=== PATIENT | female | born 2000 | race Caucasian/White ===

== ENCOUNTER 2024-09-11 09:40 | Outpatient (AMB) | payer MEDICAID, SELFPAY ==
--- NOTE | 2024-09-11 10:12 | MHC.OFFVIS ---
Vital Signs 09/11/24 10:13 Height 5 ft 7 in Weight 211 lb BMI 33.0 Pulse 71 Pulse Source Pulse Oximeter Pulse Oximetry (%) 98 Oxygen Delivery Method Room Air Intake Visit Reasons: MAT Allergies No Known Allergies Allergy (Verified 09/11/24 10:13) HPI HPI MAT: Details: She is new to me but has been in program previously last year for OUD,pills. She is a walk-in. She has OUD and was doing well until June 2024 when she started taking pills she buys from the street for no reason. Now she uses 12-13 of the pressed 30 mg Oxy pills a day and is cashing check from work immediately to buy them. Sometimes the pills make her feel high and sometimes not. She told her boyfriend she is using again. She has been using Suboxone last year and then Sublocade but had withdrawal about third week after injection and was using [address] pills while taking the Sublocade injection. Reason for visit:OUD Currently using? yes ,but stopped two days ago 12-13 a day. 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 Behavioral Health no provider or diagnosis no SI or HI no other addictive behavior no psych hospitalization medical conditions denies legal history denies [facility] Medical History Opioid use disorder Female Reproductive History Menstrual Other: no control , has not become told to see Brand Protection Manager Review of Systems Const All systems reviewed & are unremarkable except as noted in HPI and below Physical Exam Vital Signs: Last Vital Signs Pulse 71 09/11/24 10:13 Pulse Ox 98 09/11/24 10:13 Oxygen Delivery Method Room Air 09/11/24 10:13 BMI result Body Mass Index 33.0 Const General: cooperative Orientation/consciousness: patient oriented x3 HEENT Head: Yes normal to inspection Mouth: Normal oral and palatal mucosa present Eyes General: appearance normal, both eyes and all related structures Pupils: Equal, round and reactive pupils present Resp Effort & Inspection: normal respiratory effort Cardio Rate: regular rate Rhythm: regular rhythm GI Palpation (GI): Soft to palpation and nontender General: Yes no CVA tenderness Back/Spine/Pelvis Back: no CVA tenderness Skin General skin exam: no rashes or lesions noted Neuro General: patient oriented x3 Cranial nerves: Yes CN's II-XII intact bilaterally and Yes Equal, round and reactive pupils present Extrem General: Yes normal to inspection Psych Appearance: grossly normal Results AMB 14 Panel Urine Drug Screen Urine Marijuana (THC) Positive Last Edit by Neda Griffin CMA on 09/11/24 11:04 Urine Cocaine Negative Last Edit by Neda Griffin CMA on 09/11/24 11:04 Urine Morphine Negative Last Edit by Neda Griffin CMA on 09/11/24 11:04 Urine Methamphetamine Negative Last Edit by Neda Griffin CMA on 09/11/24 11:04 Urine Amphetamine Negative Last Edit by Neda Griffin CMA on 09/11/24 11:04 Urine Benzodiazepine Negative Last Edit by Neda Griffin CMA on 09/11/24 11:04 Urine Barbiturates Negative Last Edit by Neda Griffin CMA on 09/11/24 11:04 Urine Methadone Negative Last Edit by Neda Griffin CMA on 09/11/24 11:04 Urine Buprenorphine Negative Last Edit by Neda Griffin CMA on 09/11/24 11:04 Urine Tricyclic Antidepressant Negative Last Edit by Neda Griffin CMA on 09/11/24 11:04 Urine MDMA Negative Last Edit by Neda Griffin CMA on 09/11/24 11:04 Urine Oxycodone Negative Last Edit by Neda Griffin CMA on 09/11/24 11:04 Urine Phencyclidine Negative Last Edit by Neda Girffin CMA on 09/11/24 11:04 Urine Propoxyphene Negative Last Edit by Neda Griffin CMA on 09/11/24 11:04 AMB Test Urine AMB Test Urine Negative Last Edit by Neda Griffin CMA on 09/11/24 11:04 Results Reviewed Results Reviewed: Laboratory Last Values [facility] Negative 09/11/24 11:03 POC Urine Buprenorphine Negative 09/11/24 11:03 POC Urine Morphine Negative 09/11/24 11:03 POC Urine Oxycodone Negative 09/11/24 11:03 POC Urine Methadone Negative 09/11/24 11:03 POC Urine Propoxyphene Negative 09/11/24 11:03 POC Urine Barbiturates Negative 09/11/24 11:03 POC U Tricyclic Antidpr Negative 09/11/24 11:03 POC Urine PCP Negative 09/11/24 11:03 POC Ur Amphetamines Negative 09/11/24 11:03 POC Ur Methamphetamine Negative 09/11/24 11:03 POC Urine MDMA Negative 09/11/24 11:03 POC Ur Benzodiazepine Negative 09/11/24 11:03 POC Urine Cocaine Negative 09/11/24 11:03 POC Ur Marijuana (THC) Positive 09/11/24 11:03 Assessment & Plan Assessment & Plan (1) Opioid use disorder: Comment: She is in mild withdrawal and knows how to start Suboxone She has no recent blood testing Code(s): F11.90 - Opioid use, unspecified, uncomplicated Category: Medical Plan: One week Suboxone 8/2 bid. Check Hepatitis A,B,C,syphilis,T spot and HIV. She has Narcan. Check test and for fentanyl as well as general tox screen. See Brand Protection Manager for control and checkup. Counseling. Plan See in one week. Orders: Orders Fentanyl, urine Today F11.90 - Opioid use, unspecified, uncomplicated Hepatitis C Antibody Today F11.90 - Opioid use, unspecified, uncomplicated Hepatitis A IgG Today F11.90 - Opioid use, unspecified, uncomplicated Hepatitis B Surface Antibody Today F11.90 - Opioid use, unspecified, uncomplicated Hepatitis B Surface Antigen Today F11.90 - Opioid use, unspecified, uncomplicated Syphilis Screen Today F11.90 - Opioid use, unspecified, uncomplicated T Spot TB Today F11.90 - Opioid use, unspecified, uncomplicated HIV Ab/Ag Today F11.90 - Opioid use, unspecified, uncomplicated AMB 14 Panel Urine Drug Screen Today Z51.81 - Encounter for therapeutic drug level monitoring AMB HCG Urine Test Today Z32.02 - Encounter for test, result negative Referrals Counseling Referral F11.90 - Opioid use, unspecified, uncomplicated Medications: New buprenorphine-naloxone 8-2 mg (Suboxone) 1 film sublingual BID 14 ea 0RF 7 days Coding Level of Care Code Est Pt Level 4 (06216) Diagnoses Opioid use disorder F11.90
[2024-09-11 10:13] VITALS: PULSE 71; O2SAT 98; BMI 33.0
== END 2024-09-11 10:48 | disposition home or self-care (01) ==
LOC: HO.HCC 09:40
PROVIDERS: Visit Provider Internal Medicine
DX: F11.90 Opioid use, unspecified, uncomplicated (principal); Z51.81 Encounter for therapeutic drug level monitoring; Z32.02 Encounter for pregnancy test, result negative
CPT/HCPCS: 99214

== ENCOUNTER → 2024-09-11 09:40 | Outpatient (BNVA) | payer MEDICAID, SELFPAY | PROVIDERS: Visit Provider Internal Medicine | DX: F11.90 Opioid use, unspecified, uncomplicated (principal); Z51.81 Encounter for therapeutic drug level monitoring | CPT/HCPCS: 80307; 81025; 99212 ==

== ENCOUNTER 2024-09-21 14:52 | Outpatient (AMB) | payer MEDICAID, SELFPAY ==
[2024-09-21 14:53] VITALS: PULSE 80; O2SAT 99; BMI 33.4
--- NOTE | 2024-09-21 14:53 | A.OFFVIS_ITS ---
Vital Signs 09/21/24 14:53 Height 5 ft 7 in Weight 213 lb BMI 33.4 Pulse 80 Pulse Source Pulse Oximeter Pulse Oximetry (%) 99 Oxygen Delivery Method Room Air Intake Visit Reasons: MAT Allergies No Known Allergies Allergy (Verified 09/21/24 14:53) HPI HPI MAT: Details: She is doing well with Suboxone. She is not using control and is sexually active with male partner. [facility] Medical History Opioid use disorder Review of Systems Const All systems reviewed & are unremarkable except as noted in HPI and below Physical Exam Vital Signs: Last Vital Signs Pulse 80 09/21/24 14:53 Pulse Ox 99 09/21/24 14:53 Oxygen Delivery Method Room Air 09/21/24 14:53 BMI result Body Mass Index 33.4 Const General: cooperative Assessment & Plan Assessment & Plan (1) Opioid use disorder: Comment: She just ran out of Suboxone Code(s): F11.90 - Opioid use, unspecified, uncomplicated Category: Medical Plan: See in two weeks. Continue Suboxone. Set up with Instructional Support Services Director upstairs to start control. Medications: New buprenorphine-naloxone 8-2 mg (Suboxone) 1 film sublingual BID 28 ea 0RF 14 days trazodone 100 mg PO BEDTIME PRN 30 tabs 3RF sleep Coding Level of Care Code Est Pt Level 3 (43709) Diagnoses Opioid use disorder F11.90
--- OUTSIDE RECORDS SUMMARY | 2024-09-21 15:26 | XMS_ITS | Patient Health Record ---
Author Organization [facility] Address [address] [place] [address] Care Team Providers Care Rn Neurosurgical Name Role Phone [facility], [facility], [facility] Unavailable [phone] Reason For Referral No Information Social History Tobacco Use: Social History Observation Description Date Details (start date - stop date) Never Smoker NA - NA Tobacco Control (Standard) Question Answer Notes Tobacco use: Nonsmoker Assessments Encounter Date Diagnosis (ICD Code) Assessment Notes Treatment Notes Treatment Clinical Notes Section Notes 03/21/2024 AI TRIAGE SUGGESTED ASSESSMENTS: F32.A - Depression, unspecified F41.9 - Anxiety disorder, unspecified K52.9 - Noninfective gastroenteritis and colitis, unspecified E05.90 - Thyrotoxicosis, unspecified without thyrotoxic crisis or storm K27.9 - Peptic ulcer, site unspecified, unspecified as acute or chronic, without hemorrhage or perforation - -- --- AI TRIAGE CLINICAL REASONING: Based on the patient's presentation, the top differentials to consider are major depressive disorder and generalized anxiety disorder. The patient's symptoms of depressed mood, anxiety, and vomiting could be related to these conditions. Additionally, medication side effects from Zoloft should be considered. Gastroenteritis is also a possibility given the vomiting symptoms. Further evaluation is needed to rule out other differential diagnoses such as hyperthyroidism, acute stress reaction, and peptic ulcer disease. Plan Of Treatment No Information Insurance Providers Payer Name Payer Address Payer Phone Subscriber Number Group Number Insured Name Patient Relationship to Insured Coverage Start Date Coverage End Date Medicare Part B [address] [place] [phone] [id number] Jo Cutler Self - patient is the insured
--- OUTSIDE RECORDS SUMMARY | 2024-09-21 15:26 | XMS_ITS | Clinical Summary ---
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 Name Role Phone Unavailable Primary Care Provider Unavailabl e Encounters Date Type Department Care Team Description 09/15/2024 Population Health Risk Score [facility] Care [facility] (C[facility]) Department [address] [place] [id number] Provider, Population Health Generic from Last 3 Months Social History Tobacco Use Types Packs/Day Years Used Date Smoking Tobacco: Never Assessed Comments Unknown Sex and Gender Information Value Date Recorded Sex Assigned at Not on file Legal Sex Female 9:19 PM EDT Gender Identity Not on file Sexual Orientation Not on file Plan of Treatment Health Maintenance Due Date Last Done Comments Chlamydia and Gonorrhea Screening 2002 Depression Screening 2002 HIV Screening 2002 SDOH Screening 2002 Disability Screening 2002 Alcohol/Substance Use Screening 2014 Tobacco Screening 2014 Family Planning (PISQ) 2017 HPV Vaccines (1 - 3-dose series) 2017 Meningococcal B Vaccine (1 o f 2 - Standard) 2018 Hepatitis C Screening 2020 DTaP/Tdap/Td Vaccines (1 - Tdap) 2021 Hepatitis B Vaccines (1 of 3 - 19+ 3-dose series) 2021 COVID-19 Vaccine (1 - 2023-2 5 season) 2023 Pap Smear 12/26/2023 Influenza Vaccine (#1) 2024 Zoster Vaccines (1 of 2) 2052 RSV Patients and Pa tients Aged 60 years or older (1 - 1-dose 75+ series) 2077 HIB Vaccines Aged Out No longer eligi ble based on patient's age to complete this topic Hepatitis A Vaccines Aged Out No long er eligible based on patient's age to complete this topic IPV Vaccines Aged Out No longer eligi ble based on patient's age to complete this topic Meningococcal Vaccine Aged Out No cathy sary eligible based on patient's age to complete this topic Pneumococcal Vaccine: Pediat rics (0 to 5 Years) and At-Risk Patients (6 to 49) Years Aged Out No longer eligible b ased on patient's age to complete this topic RSV under 20 months Aged Out No longe r eligible based on patient's age to complete this topic Rotavirus Vaccines Aged Out No longer eligible based on patient's age to complete this topic
== END 2024-09-21 15:10 | disposition home or self-care (01) ==
LOC: HO.HCC 14:52
PROVIDERS: Visit Provider Internal Medicine
DX: F11.90 Opioid use, unspecified, uncomplicated (principal)
CPT/HCPCS: 99213

== ENCOUNTER → 2024-09-21 14:52 | Outpatient (BNVA) | payer MEDICAID, SELFPAY | PROVIDERS: Visit Provider Internal Medicine | DX: F11.90 Opioid use, unspecified, uncomplicated (principal) | CPT/HCPCS: 99212 ==